=== PATIENT | male | born 1980 | race Caucasian/White ===

== ENCOUNTER → 2020-01-14 10:17 | Outpatient (CLI) | payer MEDICAID, SELFPAY ==
[2020-01-14 12:21] LABS: Alanine Aminotransferase 45 U/L (12-78); Albumin Level 4.3 g/dl (3.5-5.0); Albumin/Globulin Ratio 1.5 (1.1-1.8); Alkaline Phosphatase 79 U/L (38-126); Anion Gap 12.5 mEq/L (5-15); Aspartate Amino Transferase 58 U/L (17-59); Bilirubin,Total 0.8 mg/dl (0.2-1.3); Blood Urea Nitrogen 13 mg/dl (9-20); Calcium 9.5 mg/dl (8.4-10.2); Carbon Dioxide 31 mmol/L (22.0-30.0); Chloride 99 mmol/L (98-107); Chol/HDL Ratio 3.7 (1-3.5); Cholesterol 166 mg/dl (140-200); Estimated Glomerular Filt Rate 82 ml/min (>60); GFR (African American) 100 ML/MIN (>60); Globulin 2.9 g/dL (1.3-3.2); Glucose 108 mg/dl (74-100); HDL Cholesterol 45 mg/dl (40-60); Potassium 4.5 mmoL/L (3.5-5.1); Sodium 138 mmol/L (136-145); Total Protein,Serum 7.2 g/dl (6.3-8.2); Triglycerides 133 mg/dl (30-150); VLDL Cholesterol 27 mg/dL (0-40)
[2020-01-14 12:33] LABS: Direct LDL Cholesterol 99.38 mg/dL (100-129)
== END ==
PROVIDERS: PCP Nurse Practitioner Family; Visit Provider Nurse Practitioner Family
DX: Z00.00 Encounter for general adult medical examination without abnormal findings (principal); F41.8 Other specified anxiety disorders
CPT/HCPCS: 36415; 80053; 80061

== ENCOUNTER → 2020-01-21 11:24 | Outpatient (CLI) | payer MEDICAID, SELFPAY ==
[2020-01-21 13:31] LABS: Hemoglobin A1C 5.5 % (4.0-6.0)
== END ==
PROVIDERS: Visit Provider Nurse Practitioner Family
DX: R73.9 Hyperglycemia, unspecified (principal)
CPT/HCPCS: 36415; 83036

== ENCOUNTER → 2020-02-13 14:13 | Outpatient (CLI) | payer MEDICAID, SELFPAY | PROVIDERS: PCP Nurse Practitioner Family; Visit Provider Nurse Practitioner Family | DX: G47.30 Sleep apnea, unspecified (principal); G47.10 Hypersomnia, unspecified; G47.00 Insomnia, unspecified; R06.83 Snoring | CPT/HCPCS: G0399 ==

== ENCOUNTER → 2020-03-10 10:54 | Outpatient (CLI) | payer MEDICAID, SELFPAY ==
[2020-03-10 13:03] LABS: Coronavirus 19 IgG Antibody Negative (Negative); Coronavirus 19 IgM Antibody Negative (Negative)
== END ==
PROVIDERS: Visit Provider Specialist
DX: Z01.818 Encounter for other preprocedural examination (principal); G47.33 Obstructive sleep apnea (adult) (pediatric)
CPT/HCPCS: 36415; 86328

== ENCOUNTER → 2020-03-12 19:51 | Outpatient (CLI) | payer MEDICAID, SELFPAY | PROVIDERS: PCP Nurse Practitioner Family; Visit Provider Specialist | DX: G47.33 Obstructive sleep apnea (adult) (pediatric) (principal); G47.30 Sleep apnea, unspecified; R06.83 Snoring | CPT/HCPCS: 95810 ==

== ENCOUNTER → 2020-04-07 14:55 | Outpatient (CLI) | payer MEDICAID, SELFPAY | PROVIDERS: PCP Nurse Practitioner Family; Visit Provider Specialist | DX: Z01.818 Encounter for other preprocedural examination (principal); G47.33 Obstructive sleep apnea (adult) (pediatric); G47.10 Hypersomnia, unspecified; R06.83 Snoring | CPT/HCPCS: G0399 ==

== ENCOUNTER → 2020-05-25 09:05 | Outpatient (CLI) | payer MEDICAID, SELFPAY ==
--- NOTE | 2020-05-25 09:09 | CT_ITS ---
PROCEDURE: CT ABDOMEN PELVIS W CON CLINICAL INDICATION: UMBILICAL PAIN, UMBILICAL HERNIA W/O OBSTRUCTION COMPARISON: No exams were available for comparison TECHNIQUE: IV Contrast: 75ML OPTIRAY 350 Oral Contrast 20ml Gastroview Axial images obtained with sagittal and coronal reformats. All CT scans at the facility use one or more dose reduction, viz: automated exposure control, ma/kV adjustment per patient size (including targeted exams where dose is matched to indication, i.e. head), or iterative reconstruction technique. FINDINGS: Lower thorax: The lower lung echeverria are clear, there is a calcified granuloma superior segment right lower lobe. There is minimal atelectasis or scarring right costophrenic angle. Cardiac size is normal. ABDOMEN: Liver: No masses or biliary dilatation. Gallbladder: Post cholecystectomy Pancreas: No masses or peripancreatic fluid collections. Spleen: unremarkable Adrenals: unremarkable Kidneys/ureters: The kidneys are normal size and show symmetrical function both appearing normal. ABDOMEN & PELVIS: Stomach bowel: The stomach is moderately distended with ingested fluid and food particles. There is mild dilatation of the duodenal sweep. The small bowel appears normal. There has been previous appendectomy. There is moderate scattered stool and gas and oral contrast throughout the colon. Peritoneum: No abnormal fluid collections. No obvious inflammatory changes. No free air. There is a tiny umbilical hernia containing fat only. Lymph nodes: No enlarged lymph nodes apparent. Vasculature: No evidence of abdominal aortic aneurysm. No retroperitoneal hemorrhage evident. Bones: No acute fracture PELVIS: Reproductive: unremarkable Bladder: The urinary bladder is moderately filled with urine and appears normal. The prostate is normal. Appendix: Post appendectomy IMPRESSION: Tiny umbilical hernia containing fat only otherwise essentially unremarkable CT scan abdomen and pelvis Dictated by: Dr. Kali Springer MD 05/25/2020 10:19 Dr. Kali Springer MD in [place] 05/25/2020 10:19
== END ==
PROVIDERS: PCP Nurse Practitioner Family; Visit Provider Nurse Practitioner Family
DX: R10.33 Periumbilical pain (principal); K42.9 Umbilical hernia without obstruction or gangrene
CPT/HCPCS: 74177; Q9966; Q9967

== ENCOUNTER → 2020-08-23 11:51 | Outpatient (CLI) | payer OTHER, SELFPAY ==
[2020-08-23 13:12] LABS: Coronavirus 19 IgG Antibody Negative (Negative); Coronavirus 19 IgM Antibody Negative (Negative)
== END ==
PROVIDERS: Visit Provider Internal Medicine Gastroenterology
DX: Z01.812 Encounter for preprocedural laboratory examination (principal); Z20.822 Contact with and (suspected) exposure to COVID-19; Z12.11 Encounter for screening for malignant neoplasm of colon; R19.7 Diarrhea, unspecified
CPT/HCPCS: 36415; 86328

== ENCOUNTER 2020-08-24 10:20 | Day surgery (SDC) | payer OTHER, SELFPAY ==
[2020-08-21 12:54] VITALS: BMI 27.0
[2020-08-24] VITALS (8 sets, daily range): BP systolic 96–127; BP diastolic 64–81; PULSE 63–78; RESP 16–18; TEMP 36.6–36.7; O2SAT 95–98
--- NOTE | 2020-08-24 12:20 | P.PCN_ITS ---
[facility] Procedure Note Procedure Note:: Colonoscopy Procedure Report: Colonoscopy with cold biopsies and cold snare polypectomy Endoscopist: Abhinav Yee II, MD Referring physician: Elsie DUNN/Kevin Braden MD/Jennifer Palomo MD Date of Procedure: August 24, 2020 Equipment: Olympus 180 variable stiffness pediatric colonoscope Sedation: MAC sedation Indication: Mr. Martin is a 40-year-old gentleman who is here for diagnostic colonoscopy. The patient reports postprandial diarrhea for more than a year. He has had some periumbilical discomfort and a knot or bulge in this area. He does have diastases of the rectus abdominis. He has had some bloating. His CAT scan showed moderate gaseous distention of the colon and stomach. He does have intermittent constipation as well. He reports no rectal bleeding or family history of colon cancer. This is his first colonoscopy. Procedure: Prior to the procedure, a history and physical exam was performed, and patient's medications and allergies were reviewed. The risks, benefits and alternatives of the sedation and procedure were discussed with the patient. All questions were answered and informed consent was obtained. The patient was brought to the procedure room. Patient identification and proposed procedure were verified by the physician and the nurse. The patient was placed in a left lateral decubitus position and the scope was passed under direct vision. Throughout the procedure, the patient's blood pressure, pulse, and oxygen saturations were monitored continuously. The colonoscopy was accomplished without difficulty. The patient tolerated the procedure well. Findings: On digital rectal examination there was normal rectal tone. There were no external hemorrhoids. The colonoscope was introduced through the anal canal to the rectum and advanced to the cecum. The ileocecal valve and appendiceal orifice were identified. The scope was advanced a short distance into the ileum which appeared grossly normal. The scope was then withdrawn into the colon. There was a single 5 mm polyp in the descending colon removed via cold snare polypectomy. Cold biopsies were taken from the right colon to rule out microscopic colitis. The remainder of the cecum, ascending, transverse, descending, sigmoid and rectum were grossly normal. There were no other mucosal abnormalities identified. Upon retroflexion within the rectum there were grade 1 internal hemorrhoids.The preparation was excellent throughout with Alvo Preparation Score of 9. The cecal time was 12 minutes. Impression: 1. Diminutive descending colon polyp 2. Grade 1 internal hemorrhoids Plan: I will follow-up the biopsies. I do feel that the patient has IBS diarrhea/functional bowel disease. I do feel that he has some visceral sensitivity. We will discuss dietary measures and treatment options.
--- NOTE | 2020-08-24 13:52 | HMH.ANESCL ---
[facility] Anesthesia Checklist - Patient Identification Patient Identification: Arm Band, Verbal (Name & ) - Structural Data Admitted From: Home Planned Operative Procedure/s: egd Consent for Planned Operative Procedure(s) Verified: Yes Verified Documents: Surgical Consent - NPO Status Verified Time NPO: 00:00 - Anesthesia Plan Anesthesia Risk discussed: Yes Anesthesia Plan: Verified ASA Class: II Anesthesia Type: General [facility] History I have reviewed the patient's past medical history: Yes Medical History: Reports:: Depression Denies:: Cancer, Diabetes Mellitus Type 1, Diabetes Mellitus Type 2, Internal Pacemaker, MRSA, Seizures *Have you ever received a pneumonia vaccine?: No *Have you received a flu vaccine this season?: No Other Medical History: Reports: Other Comment:: none Anesthesia experience/problems:: none Laterality Cases: Right: Myringotomy (Ear Tubes) Other Surgeries: Yes: Appendectomy, Cholecystectomy, Hernia Repair, Sinus Surgery. No: Pacemaker Amputation: No Fractures: No - *Social History Last grade of school completed: High school graduate Smoking Status: Never smoker Alcohol Intake: never Substance Use Type: denies use *Occupational Status:: employed Housing: house Household Members: family *Travel in the last 8 weeks: Inside the [place] - Psychiatric History Pschychiatric History:: Reports:: Depression Family Hx:: Hypertension, Diabetes
== END 2020-08-24 13:12 | disposition home or self-care (01) ==
LOC: OUTP 10:20
PROVIDERS: PCP Nurse Practitioner Family; Visit Provider Internal Medicine Gastroenterology
PROC: 0DJD8ZZ Inspection of Lower Intestinal Tract, Via Natural or Artificial Opening Endoscopic (ICD-10-PCS; CPT 45378; principal; 2020-08-24 11:30)
DX: K63.5 Polyp of colon (principal); K64.0 First degree hemorrhoids; F32.9 Major depressive disorder, single episode, unspecified; Z88.0 Allergy status to penicillin; Z88.2 Allergy status to sulfonamides; Z79.82 Long term (current) use of aspirin; Z79.899 Other long term (current) drug therapy
CPT/HCPCS: 45385

== ENCOUNTER → 2021-01-04 17:54 | Outpatient (CLI) | payer OTHER, SELFPAY ==
[2021-01-04 18:22] LABS: Chloride 102 mmol/L (98-107); Hemoglobin A1C 5.3 % (4.0-6.0); Potassium 3.7 mmoL/L (3.5-5.1); Sodium 139 mmol/L (136-145)
[2021-01-04 18:24] LABS: Alanine Aminotransferase 61 U/L (12-78); Aspartate Amino Transferase 59 U/L (17-59); Blood Urea Nitrogen 15 mg/dl (9-20); Estimated Glomerular Filt Rate 93 ml/min (>60); GFR (African American) 112 ML/MIN (>60)
[2021-01-04 18:25] LABS: Albumin Level 4.1 g/dl (3.5-5.0); Albumin/Globulin Ratio 1.7 (1.1-1.8); Alkaline Phosphatase 70 U/L (38-126); Anion Gap 14.7 mEq/L (5-15); Bilirubin,Total 1.1 mg/dl (0.2-1.3); Calcium 8.7 mg/dl (8.4-10.2); Carbon Dioxide 26 mmol/L (22.0-30.0); Chol/HDL Ratio 3.5 (1-3.5); Cholesterol 131 mg/dl (140-200); Globulin 2.4 g/dL (1.3-3.2); Glucose 56 mg/dl (74-100); HDL Cholesterol 37 mg/dl (40-60); Total Protein,Serum 6.5 g/dl (6.3-8.2); Triglycerides 64 mg/dl (30-150); VLDL Cholesterol 13 mg/dL (0-40)
[2021-01-04 18:37] LABS: Direct LDL Cholesterol 79.88 mg/dL (100-129)
== END ==
PROVIDERS: Visit Provider Nurse Practitioner Family
DX: Z00.00 Encounter for general adult medical examination without abnormal findings (principal); R73.9 Hyperglycemia, unspecified; Z79.899 Other long term (current) drug therapy
CPT/HCPCS: 80053; 80061; 83036

== ENCOUNTER 2023-04-26 17:27 | Emergency (ER) | payer OTHER, SELFPAY ==
[2023-04-26 17:29] VITALS: BP 154/95; PULSE 76; RESP 15; TEMP 36.8; O2SAT 98; BMI 27.6
--- NOTE | 2023-04-26 17:51 | CT_ITS ---
PROCEDURE INFORMATION: Exam: CT Head Without And With Contrast Exam date and time: 04/26/2023 6:02 PM Age: 42 years old Clinical indication: Pain; Headache; Additional info: Pain/swelling behind R ear TECHNIQUE: Imaging protocol: Computed tomography of the head without and with contrast. Radiation optimization: All CT scans at this facility use at least one of these dose optimization techniques: automated exposure control; mA and/or kV adjustment per patient size (includes targeted exams where dose is matched to clinical indication); or iterative reconstruction. Contrast material: ISOVUE; Contrast volume: 100 ml; Contrast route: IV; REPORTING DATA: Count of CT and Cardiac NM exams in prior 12 months: This patient has received 0 known CTs and 0 known cardiac nuclear medicine studies in the 12 months prior to the current study. COMPARISON: No relevant prior studies available. FINDINGS: Brain: Normal. No hemorrhage. Unremarkable white matter. No mass effect. Cerebral ventricles: No ventriculomegaly. Paranasal sinuses: Visualized sinuses are unremarkable. No fluid levels. Mastoid air cells: Visualized mastoid air cells are well aerated. Bones/joints: Unremarkable. No acute fracture. Soft tissues: Unremarkable. No abnormal fluid collection. IMPRESSION: 1. No acute intracranial findings. 2. No appreciable soft tissue abnormality in the right periauricular region.
--- NOTE | 2023-04-26 18:04 | HMH.EDGENADL ---
Discharge Plan Disposition Patient Disposition: Home, Self-Care Condition: Good Prescriptions Prescriptions: No Action aspirin [Adult Aspirin Regimen] 81 mg tablet,delayed release (DR/EC) 81 mg PO DAILY sertraline 50 mg tablet 50 mg PO DAILY cetirizine 10 mg tablet 10 mg PO DAILY PRN (Reason: ALLERGIES) zolpidem 5 mg tablet 5 mg PO QHS PRN (Reason: insomnia) Qty: 1 0RF Rx Instructions: Take one hour before bedtime on night of sleep study Referrals Follow up/Referrals: Maddy Wakefield APRN [Primary Care Provider] - See instructions Activity Restrictions/Add. Instructions Additional Instructions/Restrictions: You were evaluated in the emergency department today for pain and swelling behind your right ear. We do not see anything abnormal on the CT scan, and your labs are all normal as well. It is possible that this is a tight muscle from spasm or that it also may be a reactive lymph node. Take Tylenol and ibuprofen at home as needed for pain. Follow-up with your primary care provider over the next 3 days for reassessment of this. Return to the emergency department for new or worsening symptoms. Clinical Impressions Clinical Impression: Pain of scalp, Acute lymphadenitis Instructions Patient Instructions: DI for Lymphadenopathy, DI for Neck Pain Discharge ED Provider: Harriet Soliz General Adult HPI General Chief complaint: Skin/Abscess/Foreign Body Stated complaint: Knot behind R Ear Time Seen by Provider: 04/26/23 17:48 Mode of Arrival: Ambulatory Source of Information: Patient Limitations: No Limitations Description of Symptoms (Recalled from ER Triage Doc. by RN): Patient reports having a knot on the back of his right ear for 1 year. States he came to the ER today because he is having sharp pains and trouble turning his neck. History of Present Illness HPI narrative: This patient is a 42-year-old male presenting to the emergency department for evaluation with concern for swollen lump behind his right ear for the past year. He states that it has become painful over the last several days and he is now having trouble turning his head secondary to pain over that right sided lump. No fevers, cough, congestion, abdominal pain, nausea, vomiting, changes in bowel movements, or other concerns noted. No significant pain noted. No lumps or rashes noted elsewhere. Related Data Home Medications Medication Instructions Recorded Confirmed aspirin 81 mg tablet,delayed 81 mg PO DAILY Blood thinner 02/27/20 06/10/21 release (Adult Aspirin Regimen) cetirizine 10 mg tablet 10 mg PO DAILY PRN ALLERGIES 02/27/20 06/10/21 sertraline 50 mg tablet 50 mg PO DAILY Depression 02/27/20 06/10/21 Previous Rx's Medication Instructions Recorded zolpidem 5 mg tablet 5 mg PO QHS PRN insomnia #1 tab 04/04/20 Allergies Allergy/AdvReac Type Severity Reaction Status Date / Time levofloxacin [From Levaquin] Allergy Unknown Verified 06/10/21 13:18 Penicillins Allergy Unknown Verified 06/10/21 13:18 Sulfa (Sulfonamide Allergy Unknown Verified 06/10/21 13:18 Antibiotics) [facility] Disclaimer: The information contained in this section may have been updated after the patient was seen, as this information can be updated by other users. Social History Smoking Status: Never smoker alcohol intake: never substance use type: denies use current occupational status: employed Travel in the last 8 weeks: None household members: family housing: house caffeine: No ROS Obtained: Yes All systems reviewed & no additional complaints except as documented Physical Exam General General appearance: alert and in no apparent distress Head Head exam: atraumatic and other (Swollen lymph node with associated tenderness to palpation and muscle spasm of the right postauricular region. No significant surrounding erythema, warmth, or other con
[2023-04-26 18:17] LABS: Basophils # 0.1 K/mm3 (0-0.2); Basophils % 0.8 % (0.1-2.0); Eosinophils # 0.6 K/mm3 (0.0-0.4); Eosinophils % 7.8 % (0.1-12.0); Hematocrit 45.2 % (42.0-52.0); Hemoglobin 14.8 g/dL (14.1-18.0); Lymphocytes # 1.9 K/mm3 (0.7-4.5); Lymphocytes % 24.9 % (10-50); Mean Corpuscular HGB Conc 32.8 g/dL (31.8-35.4); Mean Corpuscular Hemoglobin 29.7 pg (27.0-31.2); Mean Corpuscular Volume 90.6 fl (80-94); Mean Platelet Volume 8.3 fl (7.4-10.4); Monocytes # 0.3 K/mm3 (0.1-1.0); Monocytes % 4.2 % (1.7-9.3); Neutrophils # 4.8 K/mm3 (1.8-7.8); Neutrophils % 62.3 % (37.0-80.0); Platelet Count 274 K/mm3 (142-424); Red Blood Count 4.99 M/mm3 (4.60-6.20); Red Cell Distribution Width 13.6 % (11.5-17.5); White Blood Count 7.7 K/mm3 (4.8-10.8)
--- NOTE | 2023-04-26 18:17 | PC.NURSE ---
Pt gone to RAD
[2023-04-26 18:21] LABS: Anion Gap 8.4 mEq/L (5-15); Blood Urea Nitrogen 7 mg/dl (9-20); Calcium 8.4 mg/dl (8.4-10.2); Carbon Dioxide 29 mmol/L (22.0-30.0); Chloride 107 mmol/L (98-107); Creatinine Clearance Estimated 138 mL/min (50-200); Estimated Glomerular Filt Rate 105 ml/min (>60); GFR (African American) 127 ML/MIN (>60); Glucose 110 mg/dl (74-100); Potassium 3.4 mmoL/L (3.5-5.1); Sodium 141 mmol/L (136-145)
[2023-04-26 18:30] VITALS: BP 128/81; PULSE 69; O2SAT 97
--- NOTE | 2023-04-26 18:30 | PC.NURSE ---
pt back in room from radiology
[2023-04-26 19:00] VITALS: BP 123/81; PULSE 61; O2SAT 97
[2023-04-26 19:26] VITALS: BP 127/83; PULSE 60; RESP 16; TEMP 36.8; O2SAT 98
== END 2023-04-26 19:28 | disposition home or self-care (01) ==
PROVIDERS: Emergency Provider Emergency Medicine; PCP Nurse Practitioner Family
DX: R51.9 Headache, unspecified (principal); L04.9 Acute lymphadenitis, unspecified
CPT/HCPCS: 70470; 80048; 85025; 96374; 99285; Q9967